=== PATIENT | male | born 2000 | race Caucasian/White ===

== ENCOUNTER 2020-04-06 19:12 | Emergency (ER) | payer BC ==
[2020-04-06 19:17] VITALS: RESP 18
--- NOTE | 2020-04-06 20:00 | XR ---
EXAMINATION TYPE: XR KUB DATE OF EXAM: 04/06/2020 COMPARISON: NONE HISTORY: Abdominal pain TECHNIQUE: FINDINGS: 2 views upright were obtained. Bowel gas pattern is normal. There is no sign of intestinal obstruction or pneumoperitoneum. Fecal pa ttern is normal. There are no pathologic calcifications. Lung bases are clear. There is no sign of a mass. Bony structures appear intact. IMPRESSION: Nonacute abdomen.
[2020-04-06] MEDS ORDERED: KETOROLAC 15 MG/ML 1 ML VIAL IVP STA (20:17)
[2020-04-06] MEDS ORDERED: SODIUM CHLORIDE 0.9% 1,000 ML IV STA (20:17)
[2020-04-06] MEDS ORDERED: ONDANSETRON 4 MG/2 ML VIAL IVP STA (20:17)
[2020-04-06 22:31] LABS: Basophils # (A) 0.1 k/uL (0-0.2); Basophils % (A) 1 %; Eosinophils # (A) 0.1 k/uL (0-0.7); Eosinophils % (A) 1 %; HCT 46.3 % (39.0-53.0); HGB 15.8 gm/dL (13.0-17.5); Lymphocytes # (A) 2.1 k/uL (1.0-4.8); Lymphocytes % (A) 25 %; MCH 30.4 pg (25.0-35.0); MCHC 34.1 g/dL (31.0-37.0); Mean Platelet Volume 7.6; Monocytes # (A) 0.4 k/uL (0-1.0); Monocytes % (A) 4 %; Neutrophils # (A) 5.7 k/uL (1.3-7.7); Neutrophils % (A) 68 %; Platelet Count 280 k/uL (150-450); RBC 5.21 m/uL (4.30-5.90); RDW 12.3 % (11.5-15.5); WBC 8.5 k/uL (4.0-11.0)
[2020-04-06 22:35] LABS: ALT 16 U/L (4-49); AST 21 U/L (17-59); African American GFR (CKD) >90 (>60 ml/min/1.73 sqM); Albumin 4.9 g/dL (3.5-5.0); Alkaline Phosphatase 72 U/L (38-126); Amylase 61 U/L (30-110); Anion Gap 10 mmol/L; Blood Urea Nitrogen 13 mg/dL (9-20); Carbon Dioxide 25 mmol/L (22-30); Chloride 104 mmol/L (98-107); Glucose 97 mg/dL (74-99); Lipase 42 U/L (23-300); Non-African American GFR(CKD) >90 (>60 ml/min/1.73 sqM); Potassium 3.8 mmol/L (3.5-5.1); Sodium 139 mmol/L (137-145); Total Bilirubin 1.2 mg/dL (0.2-1.3); Total Protein 8.1 g/dL (6.3-8.2)
[2020-04-06 22:50] LABS: Appearance,Urine Cloudy (Clear); Bilirubin,Urine Negative (Negative); Blood,Urine Negative (Negative); Color,Urine Yellow; Glucose,Urine (UA) Negative (Negative); Ketones,Urine 1+ (Negative); Leukocyte Esterase,Urine Negative (Negative); Mucus,Urine Many /hpf; Nitrite,Urine Negative (Negative); Protein,Urine 1+ (Negative); RBC,Urine 1 /hpf (0-5); Specific Gravity,Urine 1.034 (1.001-1.035); Sperm,Urine Occasional /hpf; WBC,Urine 2 /hpf (0-5)
--- NOTE | 2020-04-06 23:04 | ED ---
General Adult HPI - General Chief complaint: Abdominal Pain Stated complaint: headache/abd pain/vomiting Time Seen by Provider: 04/06/20 20:04 Source: patient Mode of arrival: ambulatory Limitations: no limitations - History of Present Illness Initial comments: 19-year-old male patient presents to the emergency department today for evaluation of generalized abdominal discomfort. Patient also reports feeling nauseated and having some diarrhea. He states that he has had stomach issues in the past that his symptoms are different. He denies any cough, congestion, sore throat, fever, or chills. Denies history of abdominal surgery. States he is otherwise healthy. He is concerned for COVID-19. Patient denies any recent rash, cough, shortness of breath, chest pain, diarrhea, constipation, back pain, numbness, tingling, dizziness, weakness, hematuria, dysuria, urinary urgency, urinary frequency, headache, visual changes, or any other complaints. - Related Data Previous Rx's Medication Instructions Recorded Dicyclomine [Bentyl] 20 mg PO QID #12 tablet 04/06/20 Ondansetron [Zofran ODT] 4 mg PO Q8HR PRN #10 tab 04/06/20 Allergies Allergy/AdvReac Type Severity Reaction Status Date / Time No Known Allergies Allergy Verified 04/06/20 21:44 Review of Systems ROS Statement: Those systems with pertinent positive or pertinent negative responses have been documented in the HPI. ROS Other: All systems not noted in ROS Statement are negative. Past Medical History Additional Past Medical History / Comment(s): "stomach issues" General Exam Limitations: no limitations General appearance: alert, in no apparent distress, other (This is a well- developed, well-nourished adult male patient in no acute distress. Vital signs upon presentation are temperature 99.3F, pulse 81, respirations 18, blood pressure 139/90, pulse ox 99% on room air.) Eye exam: Present: normal appearance, PERRL, EOMI. Absent: scleral icterus, conjunctival injection, periorbital swelling ENT exam: Present: normal exam, normal oropharynx, mucous membranes moist Respiratory exam: Present: normal lung sounds bilaterally. Absent: respiratory distress, wheezes, rales, rhonchi, stridor Cardiovascular Exam: Present: regular rate, normal rhythm, normal heart sounds. Absent: systolic murmur, diastolic murmur, rubs, gallop, clicks GI/Abdominal exam: Present: soft, tenderness (Generalized), normal bowel sounds. Absent: distended, guarding, rebound, rigid Neurological exam: Present: alert, oriented X3, CN II-XII intact Psychiatric exam: Present: normal affect, normal mood Skin exam: Present: warm, dry, intact, normal color. Absent: rash Course Vital Signs 04/06/20 19:13 Temperature 99.3 F Pulse Rate 81 Respiratory 18 Rate Blood Pressure 139/90 O2 Sat by Pulse 99 Oximetry Medical Decision Making - Medical Decision Making 19-year-old male patient presents to the emergency department today for evaluation of nausea, vomiting, abdominal discomfort. Physical examination did reveal generalized, tenderness. He is afebrile, vital signs. Labs reviewed and are unremarkable. Normal white blood cell count, normal liver enzymes and bilirubin. COVID-19 test was positive. I did discuss results and findings with the patient. We did discuss quarantine and concerning signs or symptoms to return for. He is given perception for Zofran and Bentyl. He is instructed to follow-up with the primary care physician for recheck in 1-2 days. Return parameters discussed in detail. He verbalizes understanding and agrees with this plan. - Lab Data Result diagrams: 04/06/20 22:07 04/06/20 22:07 Lab Results 04/06/20 04/06/20 04/06/20 Range/Units 22:07 22:07 22:07 WBC 8.5 (4.0-11.0) k/uL RBC 5.21 (4.30-5.90) m/uL Hgb 15.8 (13.0-17.5) gm/dL Hct 46.3 (39.0-53.0) % MCV 89.0 (80.0-100.0) fL MCH 30.4 (25.0-35.0) pg MCHC 34.1 (31.0-37.0) g/dL RDW 12.3 (11.5-15.5) % Plt Count 280 (150-450) k/uL Neutrophils % 68 % Lymphocytes % 25 % Monocytes % 4 % Eosinophils % 1 % Basophils % 1 % Neutrophils # 5.7 (1.3-7.7) k/uL Lymphocytes # 2.1 (1.0-4.8) k/uL Monocytes # 0.4 (0-1.0) k/uL Eosinophils # 0.1 (0-0.7) k/uL Basophils # 0.1 (0-0.2) k/uL Sodium 139 (137-145) mmol/L Potassium 3.8 (3.5-5.1) mmol/L Chloride 104 (98-107) mmol/L Carbon Dioxide 25 (22-30) mmol/L Anion Gap 10 mmol/L BUN 13 (9-20) mg/dL Creatinine 1.00 (0.66-1.25) mg/dL Est GFR (CKD-EPI)AfAm >90 (>60 ml/min/1.73 sqM) Est GFR (CKD-EPI)NonAf >90 (>60 ml/min/1.73 sqM) Glucose 97 (74-99) mg/dL Calcium 10.0 (8.4-10.2) mg/dL Total Bilirubin 1.2 (0.2-1.3) mg/dL AST 21 (17-59) U/L ALT 16 (4-49) U/L Alkaline Phosphatase 72 (38-126) U/L Total Protein 8.1 (6.3-8.2) g/dL Albumin 4.9 (3.5-5.0) g/dL Amylase 61 (30-110) U/L Lipase 42 (23-300) U/L Urine Color Yellow Urine Appearance Cloudy (Clear) Urine pH 6.0 (5.0-8.0) Ur Specific [place] 1.034 (1.001-1.035) Urine Protein 1+ H (Negative) Urine Glucose (UA) Negative (Negative) Urine Ketones 1+ H (Negative) Urine Blood Negative (Negative) Urine Nitrite Negative (Negative) Urine Bilirubin Negative (Negative) Urine Urobilinogen 2.0 (<2.0) mg/dL Ur Leukocyte Esterase Negative (Negative) Urine RBC 1 (0-5) /hpf Urine WBC 2 (0-5) /hpf Urine Mucus Many H (None) /hpf Urine Sperm Occasional H (None) /hpf Coronavirus (PCR) (Not Detectd) 04/06/20 Range/Units 22:07 WBC (4.0-11.0) k/uL RBC (4.30-5.90) m/uL Hgb (13.0-17.5) gm/dL Hct (39.0-53.0) % MCV (80.0-100.0) fL MCH (25.0-35.0) pg MCHC (31.0-37.0) g/dL RDW (11.5-15.5) % Plt Count (150-450) k/uL Neutrophils % % Lymphocytes % % Monocytes % % Eosinophils % % Basophils % % Neutrophils # (1.3-7.7) k/uL Lymphocytes # (1.0-4.8) k/uL Monocytes # (0-1.0) k/uL Eosinophils # (0-0.7) k/uL Basophils # (0-0.2) k/uL Sodium (137-145) mmol/L Potassium (3.5-5.1) mmol/L Chloride (98-107) mmol/L Carbon Dioxide (22-30) mmol/L Anion Gap mmol/L BUN (9-20) mg/dL Creatinine (0.66-1.25) mg/dL Est GFR (CKD-EPI)AfAm (>60 ml/min/1.73 sqM) Est GFR (CKD-EPI)NonAf (>60 ml/min/1.73 sqM) Glucose (74-99) mg/dL Calcium (8.4-10.2) mg/dL Total Bilirubin (0.2-1.3) mg/dL AST (17-59) U/L ALT (4-49) U/L Alkaline Phosphatase (38-126) U/L Total Protein (6.3-8.2) g/dL Albumin (3.5-5.0) g/dL Amylase (30-110) U/L Lipase (23-300) U/L Urine Color Urine Appearance (Clear) Urine pH (5.0-8.0) Ur Specific [place] (1.001-1.035) Urine Protein (Negative) Urine Glucose (UA) (Negative) Urine Ketones (Negative) Urine Blood (Negative) Urine Nitrite (Negative) Urine Bilirubin (Negative) Urine Urobilinogen (<2.0) mg/dL Ur Leukocyte Esterase (Negative) Urine RBC (0-5) /hpf Urine WBC (0-5) /hpf Urine Mucus (None) /hpf Urine Sperm (None) /hpf Coronavirus (PCR) Detected A (Not Detectd) - Radiology Data Radiology results: report reviewed, image reviewed KUB x-ray was obtained. Report was reviewed in its entirety. Impression by Dr. Fisher shows nonacute abdomen. Disposition Clinical Impression: COVID-19 Disposition: HOME SELF-CARE Condition: Good Instructions (If sedation given, give patient instructions): Viral Syndrome (ED) Additional Instructions: Increase fluids. Rest. Take Tylenol for pain control. Follow-up with the primary care physician for recheck in 1-2 days. Return to the emergency department immediately for any new, worsening, or concerning symptoms. Is patient prescribed a controlled substance at d/c from ED?: No Referrals: None,Stated [Primary Care Provider] - 1-2 days Time of Disposition: 23:25
[2020-04-06] MEDS ORDERED: ONDANSETRON 4 MG ODT STARTER PACK 2 TAB BTL PO STA (23:32)
[2020-04-06 23:50] VITALS: BP 129/95; PULSE 67; TEMP 99
== END 2020-04-06 23:48 | disposition home or self-care (01) ==
LOC: EC 19:12
DX: U07.1 COVID-19 (principal); R10.9 Unspecified abdominal pain
CPT/HCPCS: 36415; 80053; 82150; 83690; 85025; 81001; 87635; 74018; 99284; 96374; 96375; 96361; J2405; J1885; S0119